=== PATIENT | female | born 1975 | race Caucasian/White ===

== ENCOUNTER 2017-10-10 12:59 | Emergency (ER) | payer MEDICAID ==
[2017-10-10] MEDS: IBUPROFEN 600 MG TAB PO (14:11)
== END 2017-10-10 16:40 | disposition home or self-care (01) ==
LOC: FTE 12:59
DX: S43.402A Unspecified sprain of left shoulder joint, initial encounter (principal); S63.501A Unspecified sprain of right wrist, initial encounter; S63.502A Unspecified sprain of left wrist, initial encounter; W01.0XXA Fall on same level from slipping, tripping and stumbling without subsequent striking against object, initial encounter; Y92.9 Unspecified place or not applicable
CPT/HCPCS: 73030; 73110; 73562; 99284-25